=== PATIENT | female | born 1990 | race Caucasian/White ===

== ENCOUNTER 2023-10-18 16:21 | Inpatient (IN) | payer MEDICAID ==
[~2023-10-18] VITALS: Ht 149.9 cm; Wt 59.2 kg
[~2023-10-18 16:21] MED LIST: PREN-13 PO
[2023-10-18 16:35] VITALS: BP 91/63; PULSE 120; RESP 20; TEMP 97.6; O2SAT 100
[2023-10-18 17:01] LABS: BASOPHILS % (AUTO) 0.1 % (0.0-2.0); HEMATOCRIT 37.1 % (36-48); HEMOGLOBIN 12.7 g/dL (12.0-16.0); LYMPHOCYTES # (AUTO) 0.6 K/uL (2.5-16.5); LYMPHOCYTES % (AUTO) 5.5 % (20.5-51.1); MEAN CORPUSCULAR HEMOGLOBIN 31 pg (27-31); MEAN CORPUSCULAR HGB CONC 34 g/dL (33-37); MEAN CORPUSCULAR VOLUME 90.2 fL (80-94); MONOCYTES # (AUTO) 0.3 K/uL (0.8-1.0); MONOCYTES % (AUTO) 2.3 % (1.7-9.3); NEUTROPHILS # (AUTO) 10.4 K/uL (1.8-7.7); NEUTROPHILS % (AUTO) 92.1 % (42.2-75.2); PLATELET COUNT (AUTO) 217 K/uL (140-450); RED BLOOD CELL COUNT(AUTO) 4.11 MIL/uL (4.20-5.40); RED CELL DISTRIBUTION WIDTH 13.4 % (11.6-13.7); WHITE BLOOD COUNT (AUTO) 11.3 K/uL (4.8-10.8)
[2023-10-18 17:10] LABS: APPEARANCE,URINE SL CLOUDY (CLEAR); BILIRUBIN,URINE NEGATIVE (NEGATIVE); BLOOD, URINE 2+ (NEGATIVE); COLOR,URINE YELLOW (YELLOW); LEUKOCYTE ESTERASE ,URINE 3+ (NEGATIVE); NITRITE, URINE NEGATIVE (NEGATIVE); PH,URINE 6.5 (5.0-9.0); PROTEIN,URINE 1+ (NEGATIVE); UGLUCOSE NEGATIVE (NEGATIVE)
[2023-10-18 17:20] LABS: ALBUMIN 3.3 g/dL (3.4-5.0); ANION GAP 15.3 (8-16); CALCIUM 8.6 mg/dL (8.5-10.1); CARBON DIOXIDE 25.5 mmol/L (21-32); CREATININE 0.9 mg/dL (0.6-1.3); POTASSIUM 3.8 mmol/L (3.5-5.1); TOTAL BILIRUBIN 0.5 mg/dL (0.0-1.0); TOTAL PROTEIN, SERUM 7.5 g/dL (6.4-8.2)
[2023-10-18] MEDS ORDERED: ACETAMINOPHEN EXTRA STRENGTH 500 MG TAB PO ONE (17:20)
[2023-10-18] MEDS ORDERED: KETOROLAC 30 MG/ML VIAL IVP ONE (17:20)
[2023-10-18 17:40] LABS: BACTERIA,URINE 1+ /HPF (None Seen); MUCUS,URINE 1+ /LPF (None Seen); RBC,URINE 50-80 /HPF (0-5); SQUAMOUS EPITHELIAL CELL,UR 50-80 /LPF (0-3 (FEW)); TRICHOMONAS,URINE None Seen /HPF (None Seen); WBC,URINE 80-100 /HPF (0-5); YEAST,URINE None Seen /HPF (None Seen)
[2023-10-18] MEDS ORDERED: NACL 0.9% 2,000 ML IV ONE (18:00)
[2023-10-18 20:04] VITALS: O2SAT 99
[2023-10-18 20:21] LABS: LACTIC ACID 1.3 mmol/L (0.4-2.0)
[2023-10-18] MEDS ORDERED: NACL 0.9% 1,000 ML IV SCH (20:25)
[2023-10-18] MEDS ORDERED: cefTRIAXone 1,000 MG VIAL ONE (20:29)
[2023-10-18] MEDS: ONDANSETRON 4 MG/2 ML VIAL IVP PRN (23:25)
[2023-10-18] MEDS ORDERED: ONDANSETRON 4 MG/2 ML VIAL ONE (23:33)
[2023-10-18] MEDS ORDERED: LORazepam 2 MG/ML VIAL IVP ONE (23:45)
[2023-10-19] VITALS (14 sets, daily range): BP systolic 109–130; BP diastolic 64–91; PULSE 85–104; RESP 17–33; TEMP 97.5–98.8; O2SAT 96–100
[2023-10-19] MEDS ORDERED: NACL 0.9% 1,000 ML IV ONE (00:05)
[2023-10-19] MEDS ORDERED: NOREPINEPHRINE 4 MG/4 ML VIAL IV ONE ×2 (01:53→02:40)
[2023-10-19] MEDS ORDERED: NOREPINEPHRINE 8 MG in DEXTROSE 5% 250 ML IV PRN (01:55)
[2023-10-19 02:15] LABS: BASOPHILS % (AUTO) 0.1 % (0.0-2.0); EOSINOPHILS % (AUTO) 0.1 % (0.0-4.0); HEMATOCRIT 27.6 % (36-48); HEMOGLOBIN 9.5 g/dL (12.0-16.0); LYMPHOCYTES # (AUTO) 0.4 K/uL (2.5-16.5); LYMPHOCYTES % (AUTO) 5.1 % (20.5-51.1); MEAN CORPUSCULAR HEMOGLOBIN 31 pg (27-31); MEAN CORPUSCULAR HGB CONC 34 g/dL (33-37); MEAN CORPUSCULAR VOLUME 91.1 fL (80-94); MONOCYTES # (AUTO) 0.1 K/uL (0.8-1.0); MONOCYTES % (AUTO) 1.5 % (1.7-9.3); NEUTROPHILS # (AUTO) 6.7 K/uL (1.8-7.7); NEUTROPHILS % (AUTO) 93.2 % (42.2-75.2); PLATELET COUNT (AUTO) 128 K/uL (140-450); RED BLOOD CELL COUNT(AUTO) 3.03 MIL/uL (4.20-5.40); RED CELL DISTRIBUTION WIDTH 13.4 % (11.6-13.7); WHITE BLOOD COUNT (AUTO) 7.2 K/uL (4.8-10.8)
[2023-10-19] MEDS ORDERED: NOREPINEPHRINE 4 MG in DEXTROSE 5% 250 ML IV PRN ×2 (02:15→07:05)
[2023-10-19 02:25] LABS: ANION GAP 14.9 (8-16); CALCIUM 6.5 mg/dL (8.5-10.1); CARBON DIOXIDE 20.4 mmol/L (21-32); CREATININE 0.8 mg/dL (0.6-1.3); POTASSIUM 3.3 mmol/L (3.5-5.1)
[2023-10-19 02:46] LABS: BLOOD GAS PCO2 23.9 mmHg (35-45); BLOOD GAS PH 7.422 (7.35-7.45)
[2023-10-19 02:47] LABS: BLOOD GAS BASE EXCESS -7.7 mmol/L (-2.0-2.0); BLOOD GAS HCO3 15.2 mmol/L (22-26); BLOOD GAS PO2 82.8 mmHg (75-100)
[2023-10-19] MEDS ORDERED: PIPERACILLIN/TAZOBACTAM 3.375 GM in DEXTROSE 5% 50 ML IV SCH ×2 (07:55→08:07)
[2023-10-19] MEDS ORDERED: ZOLPIDEM 5 MG TAB PO PRN (08:00)
[2023-10-19] MEDS ORDERED: HYDROcodone/APAP 5/325 MG 1 TAB TAB PO PRN (08:00)
[2023-10-19] MEDS ORDERED: NACL 0.9% 1,000 ML IV SCH (08:40)
[2023-10-19] MEDS ORDERED: KCL 20 MEQ IN 100 mL PREMIX 200 ML IV SCH (09:00)
[2023-10-19] MEDS: DOCUSATE SODIUM 100 MG GELCAP PO SCH (09:30)
[2023-10-19] MEDS: NACL 0.9% 1,000 ML IV SCH ×2 (09:32→19:59)
[2023-10-19] MEDS ORDERED: POTASSIUM CHLORIDE 20 MEQ, LIDOCAINE 1% 25 MG in NACL 0.9% 250 ML IV SCH (12:00)
[2023-10-19] MEDS ORDERED: POTASSIUM CHLORIDE 10 MEQ TABER PO SCH (12:08)
[2023-10-19] MEDS ORDERED: POTASSIUM CHLORIDE 40 MEQ, LIDOCAINE MPF 1% 25 MG in NACL 0.9% 250 ML IV ONE (12:20)
[2023-10-19] MEDS ORDERED: POTASSIUM CHLORIDE 40 MEQ, LIDOCAINE 1% 25 MG in NACL 0.9% 250 ML IV SCH (13:00)
[2023-10-19] MEDS: PIPERACILLIN/TAZOBACTAM 3.375 GM in DEXTROSE 5% 50 ML IV SCH ×2 (15:07→19:59)
[2023-10-19] MEDS: ONDANSETRON 4 MG/2 ML VIAL IVP PRN (18:07)
[2023-10-20] VITALS (14 sets, daily range): BP systolic 98–122; BP diastolic 56–88; PULSE 74–101; RESP 18–27; TEMP 97–98.9; O2SAT 96–100
[2023-10-20] MEDS: NACL 0.9% 1,000 ML IV SCH ×2 (01:51→14:45)
[2023-10-20] MEDS: PIPERACILLIN/TAZOBACTAM 3.375 GM in DEXTROSE 5% 50 ML IV SCH ×4 (01:51→21:29)
[2023-10-20 05:24] LABS: BASOPHILS % (AUTO) 0.3 % (0.0-2.0); EOSINOPHILS # (AUTO) 0.3 K/uL (0-0.4); EOSINOPHILS % (AUTO) 1.8 % (0.0-4.0); HEMATOCRIT 26.6 % (36-48); HEMOGLOBIN 9.3 g/dL (12.0-16.0); LYMPHOCYTES # (AUTO) 1.8 K/uL (2.5-16.5); LYMPHOCYTES % (AUTO) 12.2 % (20.5-51.1); MEAN CORPUSCULAR HEMOGLOBIN 31 pg (27-31); MEAN CORPUSCULAR HGB CONC 35 g/dL (33-37); MEAN CORPUSCULAR VOLUME 89.6 fL (80-94); MONOCYTES # (AUTO) 0.6 K/uL (0.8-1.0); MONOCYTES % (AUTO) 4.3 % (1.7-9.3); NEUTROPHILS # (AUTO) 11.9 K/uL (1.8-7.7); NEUTROPHILS % (AUTO) 81.4 % (42.2-75.2); PLATELET COUNT (AUTO) 169 K/uL (140-450); RED BLOOD CELL COUNT(AUTO) 2.97 MIL/uL (4.20-5.40); WHITE BLOOD COUNT (AUTO) 14.6 K/uL (4.8-10.8)
[2023-10-20 08:00] LABS: ANION GAP 12.4 (8-16); CALCIUM 6.8 mg/dL (8.5-10.1); CARBON DIOXIDE 22.7 mmol/L (21-32); CREATININE 0.6 mg/dL (0.6-1.3); POTASSIUM 3.1 mmol/L (3.5-5.1)
[2023-10-20] MEDS: DOCUSATE SODIUM 100 MG GELCAP PO SCH (08:01)
[2023-10-20] MEDS ORDERED: KCL 20 MEQ IN 100 mL PREMIX 200 ML IV SCH (10:00)
[2023-10-20] MEDS ORDERED: CALCIUM GLUC 1 GM/50 mL NS BAG 50 ML IV SCH (11:00)
[2023-10-20] MEDS: ONDANSETRON 4 MG/2 ML VIAL IVP PRN (11:19)
[2023-10-20] MEDS ORDERED: KCL 20 MEQ IN 100 mL PREMIX 200 ML IV PRN (18:40)
[2023-10-21] VITALS: BP 122/87; PULSE 90; PULSE 93; RESP 20; TEMP 98.9; O2SAT 96
[2023-10-21 04:00] VITALS: BP 121/86; PULSE 85; RESP 19; TEMP 98.5; O2SAT 96
[2023-10-21 04:58] VITALS: PULSE 97
[2023-10-21] MEDS: PIPERACILLIN/TAZOBACTAM 3.375 GM in DEXTROSE 5% 50 ML IV SCH ×4 (05:07→22:12)
[2023-10-21] MEDS: NACL 0.9% 1,000 ML IV SCH ×3 (06:14→22:22)
[2023-10-21 07:15] LABS: BASOPHILS % (AUTO) 0.4 % (0.0-2.0); EOSINOPHILS # (AUTO) 0.1 K/uL (0-0.4); EOSINOPHILS % (AUTO) 0.6 % (0.0-4.0); HEMATOCRIT 27.8 % (36-48); HEMOGLOBIN 9.5 g/dL (12.0-16.0); LYMPHOCYTES # (AUTO) 1.7 K/uL (2.5-16.5); LYMPHOCYTES % (AUTO) 18.6 % (20.5-51.1); MEAN CORPUSCULAR HEMOGLOBIN 31 pg (27-31); MEAN CORPUSCULAR HGB CONC 34 g/dL (33-37); MEAN CORPUSCULAR VOLUME 90.1 fL (80-94); MONOCYTES # (AUTO) 0.4 K/uL (0.8-1.0); MONOCYTES % (AUTO) 4.9 % (1.7-9.3); NEUTROPHILS # (AUTO) 6.8 K/uL (1.8-7.7); NEUTROPHILS % (AUTO) 75.5 % (42.2-75.2); PLATELET COUNT (AUTO) 204 K/uL (140-450); RED BLOOD CELL COUNT(AUTO) 3.09 MIL/uL (4.20-5.40); WHITE BLOOD COUNT (AUTO) 9.1 K/uL (4.8-10.8)
[2023-10-21 07:31] LABS: ANION GAP 13.6 (8-16); CALCIUM 8.2 mg/dL (8.5-10.1); CARBON DIOXIDE 22.4 mmol/L (21-32); CREATININE 0.6 mg/dL (0.6-1.3)
[2023-10-21 08:00] VITALS: BP 120/83; PULSE 73; PULSE 78; RESP 17; TEMP 98; O2SAT 97
[2023-10-21] MEDS: DOCUSATE SODIUM 100 MG GELCAP PO SCH (09:21)
[2023-10-21 16:00] VITALS: BP 126/90; PULSE 71; RESP 17; TEMP 98.5; O2SAT 98
[2023-10-21 20:00] VITALS: PULSE 76
[2023-10-22] VITALS: BP 109/58; PULSE 67; RESP 18; TEMP 98.4; O2SAT 96
[2023-10-22] MEDS: PIPERACILLIN/TAZOBACTAM 3.375 GM in DEXTROSE 5% 50 ML IV SCH ×4 (05:00→19:56)
[2023-10-22 06:08] LABS: BASOPHILS % (AUTO) 0.7 % (0.0-2.0); EOSINOPHILS # (AUTO) 0.1 K/uL (0-0.4); EOSINOPHILS % (AUTO) 0.8 % (0.0-4.0); HEMATOCRIT 25.7 % (36-48); HEMOGLOBIN 9.2 g/dL (12.0-16.0); LYMPHOCYTES # (AUTO) 2.1 K/uL (2.5-16.5); LYMPHOCYTES % (AUTO) 29.5 % (20.5-51.1); MEAN CORPUSCULAR HEMOGLOBIN 32 pg (27-31); MEAN CORPUSCULAR HGB CONC 36 g/dL (33-37); MEAN CORPUSCULAR VOLUME 88.7 fL (80-94); MONOCYTES # (AUTO) 0.6 K/uL (0.8-1.0); MONOCYTES % (AUTO) 7.8 % (1.7-9.3); NEUTROPHILS # (AUTO) 4.3 K/uL (1.8-7.7); NEUTROPHILS % (AUTO) 61.2 % (42.2-75.2); PLATELET COUNT (AUTO) 212 K/uL (140-450); RED CELL DISTRIBUTION WIDTH 13.8 % (11.6-13.7)
[2023-10-22 06:38] LABS: ANION GAP 15.3 (8-16); CALCIUM 7.6 mg/dL (8.5-10.1); CARBON DIOXIDE 23.1 mmol/L (21-32); CREATININE 0.7 mg/dL (0.6-1.3); POTASSIUM 3.4 mmol/L (3.5-5.1)
[2023-10-22] MEDS: NACL 0.9% 1,000 ML IV SCH ×2 (07:28→16:57)
[2023-10-22 08:00] VITALS: BP 113/80; PULSE 67; RESP 16; TEMP 97.2; O2SAT 96
[2023-10-22] MEDS: DOCUSATE SODIUM 100 MG GELCAP PO SCH (08:57)
[2023-10-22 13:14] LABS: INR 0.99 (0.8-1.2); PARTIAL THROMBOPLASTIN TIME 25.2 secs (22-35.6); PROTHROMBIN TIME 10.4 secs (10.8-13.4)
[2023-10-22 16:00] VITALS: BP 156/95; PULSE 56; RESP 16; TEMP 98; O2SAT 98
[2023-10-22 20:00] VITALS: PULSE 55; RESP 20; TEMP 98; O2SAT 98
[2023-10-23] VITALS: BP 134/83; PULSE 55; RESP 20; TEMP 98.1; O2SAT 98
[2023-10-23] MEDS: PIPERACILLIN/TAZOBACTAM 3.375 GM in DEXTROSE 5% 50 ML IV SCH ×2 (01:04→09:08)
[2023-10-23] MEDS: NACL 0.9% 1,000 ML IV SCH (02:21)
[2023-10-23 06:20] LABS: BASOPHILS # (AUTO) 0.1 K/uL (0.00-0.22); BASOPHILS % (AUTO) 0.7 % (0.0-2.0); EOSINOPHILS # (AUTO) 0.2 K/uL (0-0.4); EOSINOPHILS % (AUTO) 1.7 % (0.0-4.0); HEMATOCRIT 28.2 % (36-48); HEMOGLOBIN 9.8 g/dL (12.0-16.0); LYMPHOCYTES # (AUTO) 2.7 K/uL (2.5-16.5); LYMPHOCYTES % (AUTO) 30.4 % (20.5-51.1); MEAN CORPUSCULAR HEMOGLOBIN 31 pg (27-31); MEAN CORPUSCULAR HGB CONC 35 g/dL (33-37); MEAN CORPUSCULAR VOLUME 88.5 fL (80-94); MONOCYTES # (AUTO) 0.6 K/uL (0.8-1.0); MONOCYTES % (AUTO) 6.7 % (1.7-9.3); NEUTROPHILS # (AUTO) 5.5 K/uL (1.8-7.7); NEUTROPHILS % (AUTO) 60.5 % (42.2-75.2); PLATELET COUNT (AUTO) 290 K/uL (140-450); RED BLOOD CELL COUNT(AUTO) 3.19 MIL/uL (4.20-5.40); RED CELL DISTRIBUTION WIDTH 13.7 % (11.6-13.7)
[2023-10-23 06:32] LABS: ANION GAP 10.8 (8-16); CALCIUM 7.7 mg/dL (8.5-10.1); CARBON DIOXIDE 25.9 mmol/L (21-32); CREATININE 0.7 mg/dL (0.6-1.3); POTASSIUM 3.7 mmol/L (3.5-5.1)
[2023-10-23] MEDS ORDERED: ACET-9525 PO (08:39)
[2023-10-23] MEDS ORDERED: AMOX-999 PO (08:39)
[2023-10-23] MEDS: DOCUSATE SODIUM 100 MG GELCAP PO SCH (09:07)
[2023-10-23 12:17] VITALS: BP 121/82; PULSE 85; RESP 18; TEMP 97.5
== END 2023-10-23 14:15 | disposition home or self-care (01) | DRG 720 ==
LOC: MED 16:21 → MMU 20:33 → MIC 10-19 06:32 → MTU 10-20 18:50 → MMU 10-21 19:14
PROVIDERS: ADMIT Family Medicine; ATTEND Family Medicine
DX: A41.9 Sepsis, unspecified organism (principal); J96.01 Acute respiratory failure with hypoxia; R65.21 Severe sepsis with septic shock; E44.0 Moderate protein-calorie malnutrition; N17.9 Acute kidney failure, unspecified; N12 Tubulo-interstitial nephritis, not specified as acute or chronic; E87.6 Hypokalemia; D72.829 Elevated white blood cell count, unspecified; K81.9 Cholecystitis, unspecified; Z68.26 Body mass index [BMI] 26.0-26.9, adult
CPT/HCPCS: 36415; 36600; 71045; 71275; 76705; 78445; 80048; 80053; 81001; 81025; 82803; 83036; 83605; 83690; 83880; 85025; 85379; 85610; 85730; 87040; 87081; 87086; 93005; 93976; 96361; 96365; 96375; 99285; J0610; J0696; J1885; J2001; J2060; J2405; J2543; J3480; J3490; J7030; J7060; Q0092; Q9967